=== PATIENT | male | born 1960 | race Caucasian/White ===

== ENCOUNTER → 2020-09-20 | Outpatient (CLI) | payer OTHER ==
--- NOTE | 2020-09-22 06:57 | MR ---
EXAMINATION TYPE: MR knee LT wo con DATE OF EXAM: 09/20/2020 COMPARISON: None. HISTORY: Left knee pain and swelling for 3 weeks. TECHNIQUE: Multiplanar, multisequence imaging of the left knee is performed without IV contrast. FINDINGS: MEDIAL MENISCUS: Some increased signal anterior horn medial meniscus. More abnormal appearance to the central body and posterior horn with truncated appearance, there is abnormal signal extending to art icular surface along with truncated appearance. Double PCL sign is noted. LATERAL MENISCUS: Anterior and posterior horns are intact without tear. CRUCIATE LIGAMENTS: The anterior and posterior cruciate ligaments are intact and unremarkable. COLLATERAL LIGAMENTS: The medial collateral ligament and lateral collateral ligament complex are inta ct and unremarkable. EXTENSOR MECHANISM: Visualized quadriceps and patellar tendons are intact. EFFUSION: No significant suprapatellar joint effusion. POPLITEAL CYST: No popliteal/saucedo cyst. TRICOMPARTMENT SPACES: Mild to moderate tricompartment joint space loss. No significant spurring. CARTILAGE: Tricompartmental articular cartilage is preserved. BONE MARROW SIGNAL: No focal abnormal marrow signal is appreciated. OTHER: No additional significant abnormality is appreciated. IMPRESSION: 1. Complex full-thickness tear involving posterior horn and central body of medial meniscus, suspicio n for intra-articular meniscal fragment noted. 2. Mild to borderline moderate tricompartment degenerative changes as detailed above.
== END | disposition home or self-care (01) ==
LOC: RADMRIMAIN 17:05
PROVIDERS: ATTEND Orthopaedic Surgery Sports Medicine
DX: M23.322 Other meniscus derangements, posterior horn of medial meniscus, left knee (principal); M17.12 Unilateral primary osteoarthritis, left knee

== ENCOUNTER 2023-08-27 07:46 | Day surgery (SDC) | payer OTHER ==
[~2023-08-27 07:46] MED LIST: LACTATED RINGERS 1,000 ML IV SCH; LIDOCAINE 1% (10MG/ML) FOR IV START INTRADERMA PRN
[2023-08-27] MEDS: LACTATED RINGERS 1,000 ML IV ONE (08:02)
[2023-08-27 08:19] VITALS: RESP 18; TEMP 98
[2023-08-27] MEDS ORDERED: PROPOFOL 10 MG/ML 20 ML VIAL IV ONE (08:45)
--- NOTE | 2023-08-27 09:25 | P.PCN ---
Date of Procedure: 08/27/23 Procedure(s) Performed: BRIEF HISTORY: Patient is a 63-year-old pleasant white male scheduled for an elective colonoscopy as a part of screening for colon cancer. PROCEDURE PERFORMED: Colonoscopy. PREOPERATIVE DIAGNOSIS: Screening for colon cancer. IV sedation per Anesthesia. PROCEDURE: After informed consent was obtained, the patient, was brought into the endoscopy unit. IV sedation was administered by Anesthesia under continuous monitoring. Digital rectal examination was normal. Initially the Olympus CF-160 flexible video colonoscope was then inserted in the rectum, gradually advanced into the cecum without any difficulty. Careful examination was performed as the scope was gradually being withdrawn. Ileocecal valve and the appendiceal orifice were visualized and appeared normal. Prep was excellent. Mucosa of the cecum, ascending colon, transverse colon, descending colon, sigmoid colon, and rectum appeared normal. Scattered sigmoid diverticula . Retroflexion was performed in the rectum and no lesions were seen. The patient tolerated the procedure well. IMPRESSION: Normal-appearing colon from rectum to cecum with no evidence of colorectal neoplasia. Scattered small diverticulosis. RECOMMENDATIONS: Findings of this examination were discussed with the patient as well as her family. He was advised to have a repeat screening colonoscopy in 10 years.
[2023-08-27 09:32] VITALS: BP 143/82; PULSE 75
== END 2023-08-27 09:47 | disposition home or self-care (01) ==
LOC: ORWHC2ENDO 07:46
PROVIDERS: ATTEND Internal Medicine Gastroenterology
DX: Z12.11 Encounter for screening for malignant neoplasm of colon (principal); K57.30 Diverticulosis of large intestine without perforation or abscess without bleeding; E78.5 Hyperlipidemia, unspecified; K21.9 Gastro-esophageal reflux disease without esophagitis; Z87.891 Personal history of nicotine dependence; Z79.899 Other long term (current) drug therapy
CPT/HCPCS: 45378; J2704

== ENCOUNTER → 2024-09-25 | Outpatient (CLI) | payer OTHER ==
--- NOTE | 2024-09-26 09:58 | MR ---
EXAMINATION TYPE: MR lumbar spine wo con DATE OF EXAM: 09/25/2024 8:22 PM COMPARISON: None. CLINICAL INDICATION: Male, 64 years old with history of M54.16, Low back pain and numbness into RT si de TECHNIQUE: Multi planar, multi sequence imaging was performed utilizing: T1-weighted, T2-weighted, a nd turbo inversion recovery imaging of the lumbar spine. IV Contrast: mL (None, if empty) FINDINGS: Alignment: The lumbar vertebral bodies have preserved heights and alignment. Cord: The conus medullaris and the distal spinal cord appear unremarkable with regards to their signa l intensity and morphology. Bones/Discs: Mild degeneration changes throughout the spine with osteophyte formation and facet joint arthropathy. Intervertebral disc signal is maintained. Reactive adjoining endplate edema at the supe rior endplate of L3 which is very subtle. T12-L1: No evidence of significant spinal canal stenosis or neural foraminal stenosis. L1-L2: No evidence of significant spinal canal stenosis or neural foraminal stenosis. L2-L3: Central protrusion with mild spinal canal stenosis/narrowing the ventral subarachnoid space. T he neural foramen are patent. L3-L4: No evidence of significant spinal canal stenosis or neural foraminal stenosis. L4-L5: Central protrusion with mild spinal canal stenosis/narrowing the ventral subarachnoid space. Facet joint arthropathy mild to moderate bilateral neural foraminal stenosis.. L5-S1: Central protrusion with mild spinal canal stenosis/narrowing the ventral subarachnoid space. F acet joint arthropathy moderate bilateral neural foraminal stenosis.. No significant spinal canal or neural foraminal stenosis in the remainder of the visualized levels. Other findings: None. IMPRESSION: 1. No definitive evidence of disc herniation or significant spinal canal stenosis. 2. Multilevel mild degeneration changes with tiny protrusion centrally suggested. No evidence for hi gh-grade neural foraminal stenosis. No findings to correlate with right numbness. [facility], , 09/26/2024 9:55 AM
== END | disposition home or self-care (01) ==
LOC: RADMRIMAIN 19:45
PROVIDERS: ATTEND Family Medicine
DX: M51.16 Intervertebral disc disorders with radiculopathy, lumbar region (principal); M47.26 Other spondylosis with radiculopathy, lumbar region
CPT/HCPCS: 72148